=== PATIENT | female | born 1985 | race Caucasian/White ===

== ENCOUNTER 2021-01-11 15:57 | Emergency (ER) | payer OTHER, SELFPAY ==
[2021-01-11] VITALS (18 sets, daily range): BP systolic 111–170; BP diastolic 51–95; PULSE 74–114; RESP 11–19; TEMP 36.4; O2SAT 97–100; BMI 64.9
--- NOTE | 2021-01-11 16:13 | ECG_ITS ---
[facility] Test Date: 2021-01-11 Pat Name: Daxa Fuentes Department: Room: Gender: Female Service Associate: : 1985 Requested By: Chris Erickson Order Number: [id number] Selene MD: Lb Loo M.D. Measurements Intervals [place] Rate: 99 P: 65 IA: 127 QRS: 22 QRSD: 86 T: 32 QT: 353 QTc: 453 Interpretive Statements SINUS RHYTHM WITH SINUS ARRHYTHMIA POSSIBLE LEFT ATRIAL ENLARGEMENT [-0.1mV P-WAVE IN V1/V2] No previous ECG available for comparison Electronically Signed On 01-11-2021 18:07:53 CDT by Lb Loo M.D. [email or web address]
--- NOTE | 2021-01-11 16:23 | W.ED.ABDPA2 ---
Documented by User: Nicole Pitts PA-C 01/11/21 16:49 HPI - Abdominal Pain General: Chief Complaint: Abdominal Pain Stated Complaint: Abdominal pain, nausea, irregular heatrate Time Seen by Provider: 01/11/21 16:19 Source: patient Mode of arrival: ambulatory Limitations: no limitations History of Present Illness: HPI narrative: 35-year-old female presents to the ER today for sudden onset of abdominal pain, diarrhea and abnormal heart rate and feelings. Patient reports she started a new medication for weight loss yesterday called Osito. Patient was warned by her PCP that this could cause some nausea but when she started feeling like her heart was beating fast and pounding she became concerned. Patient reports she has had diarrhea today in addition to some epigastric abdominal pain. Patient denies chest pain but rather describes a feeling of her heart racing and pounding. Patient denies any shortness of breath. Patient denies headache, fever, chills, shortness of breath, dizziness, vomiting, change in urinary habits. MD elicited complaint: abdominal pain Pertinent past history: other (started new medication) Onset (ago): hour(s) (24) Pain Consistency: intermittent Location: Epigastric Severity: mild Associated Symptoms: Reports diarrhea, nausea and other (heart pounding and racing); Denies chills, constipation, fever(s) and vomiting Review of Systems Const: Denies: fever(s), chills or fatigue Eyes: Denies: change in vision ENMT: Denies: throat pain, nasal discharge or nasal congestion Card: Reports: palpitations and irregular heart rhythm (feels like heart is pounding); Denies: chest pain Resp: Denies: dyspnea or wheezing GI: Reports: abdominal pain, nausea, diarrhea and other (heart pounding and racing); Denies: vomiting or constipation Musc: Denies: back pain Skin/Breast: Denies: rash Neuro: Denies: headache(s) or dizziness PFSH ED PFSH: Social History Smoking and tobacco status: never smoked Alcohol intake: never Female Reproductive History: Spontaneous abortions: No Physical Exam Const: COMMON NORMALS: no acute distress and patient oriented x3 GENERAL APPEARANCE: cooperative and comfortable NUTRITIONAL APPEARANCE: obese morbidly obese HENMT: COMMON NORMALS: normocephalic HEAD & SCALP: normocephalic Lymph: LYMPHATIC: no lymphadenopathy noted Chest: COMMONS NORMALS: normal inspection of the chest Resp: COMMON NORMALS: normal respiratory effort, No retractions and clear to auscultation bilaterally AUSCULTATION: clear to auscultation bilaterally, no rales, no rhonchi and no wheezes Cardio: COMMON NORMALS: regular rate, regular rhythm and No murmurs present (Cardio) RATE: regular rate RHYTHM: regular rhythm GI: COMMON NORMALS: Normal to inspection, nondistended, normoactive bowel sounds present, Soft to palpation and non-tender PALPATION: Yes Soft to palpation Extremity: COMMON NORMALS: normal to inspection and full ROM Neuro: COMMON NORMALS: patient oriented x3 and moves all extremities Psych: COMMON NORMALS: mental status grossly normal and Normal thought process present THOUGHT PROCESS: Normal thought process present Skin: COMMON NORMALS: no rashes or lesions noted GENERAL SKIN EXAM: no rashes or lesions noted Course ED course: Patient presents to ER today for epigastric pain and nausea in addition to heart palpitations, feeling of heart racing, feeling of heart pounding. This all started after starting new medication Contrave yesterday for weight loss. These are all frequent known side effects of Contrave. We we will do an EKG and lab work to make sure patient is stable. Vital Signs: Vital signs: Vital Signs Temperature 97.5 F L 01/11/21 16:07 Pulse Rate 92 01/11/21 16:10 Respiratory Rate 14 01/11/21 16:10 Blood Pressure 115/65 01/11/21 16:10 Pulse Oximetry 99 01/11/21 16:10 MDM - Abdominal Pain Lab Data: Attestation: I reviewed the patient's lab results. Lab results narrative: CBC is normal at this time Labs: Lab Results 01/11/21 01/11/21 01/11/21 Range/Units 16:37 16:37 16:37 WBC 8.6 (4.0-10.0) 10^3/ uL RBC 4.58 (4.1-5.3) 10^6/u L Hgb 13.7 (11.5-15.3) g/dL Hct 42.0 (37.0-47.0) % MCV 91.7 (81-99) fl MCH 29.9 (28.0-34.0) pg MCHC 32.6 (30.0-36.0) g/dL RDW 12.8 (12.1-15.1) % Plt Count 324 (130-400) 10^3/c mm MPV 10.2 (7.4-10.4) fL Neut % (Auto) 50.1 % Lymph % (Auto) 40.2 % [place] % (Auto) 6.3 % Eos % (Auto) 2.6 % Baso % (Auto) 0.7 % Neut # (Auto) 4.30 (1.8-7.7) 10^3/u L Lymph # (Auto) 3.5 (0.8-4.8) 10^3/u L [place] # (Auto) 0.5 (0.2-0.9) 10^3/u L Eos # (Auto) 0.2 (0.0-0.8) 10^3/u L Baso # (Auto) 0.1 (0.0-0.1) 10^3/u L Nucleated RBC % (a uto) 0 % Nucleated RBCs # 0.0 /100WBC Sodium 137 (136-145) mmol/L Potassium 4.1 (3.5-5.1) mmol/L Chloride 102 (98-107) mmol/L Carbon Dioxide 22 (22-29) mmol/L Anion Gap 17.1 (5-19) BUN 15 (6-20) mg/dL Creatinine 0.6 (0.5-0.9) mg/dL GFR Calculation 115.1 (90-130) mL/min Glucose 96 (65-115) mg/dL Calculated Osmolal ity 285 (285-295) mOsm/k g Calcium 9.3 (8.5-10.5) mg/dL Total Bilirubin 1.6 H (0.15-1.2) mg/dL AST 27 (0-32) U/L ALT 30 (0-33) U/L Alkaline Phosphata se 62 (35-105) IU/L Total Protein 7.4 (6.6-8.7) g/dL Albumin 4.2 (3.5-5.2) g/dL Globulin 3.2 (1.3-4.6) g/dL Lipase 17 (13-60) U/L Urine Color Yellow (Yellow) Urine Appearance Sl hazy (CLEAR) Urine pH 6.5 (5-7) Ur Specific Gravit y 1.010 (1.005-1.030) Urine Protein Neg (Negative) Urine Glucose (UA) Norm (Normal) Urine Ketones Negative (Negative) Urine Blood 3+ H (Negative) Urine Nitrate Negative (Negative) Urine Bilirubin Neg (Negative) Urine Urobilinogen 1 H (Negative) mg/dL Ur Leukocyte Qing ase Negative (Negative) Urine RBC >100 H (0-2) /hpf Urine WBC 0-4 H (0-5) /hpf Ur Squamous Epith Cells 15-25 H (0-5) /hpf Amorphous Sediment Not Reportable Urine Bacteria Trace (NONE) /hpf Critical Care Time Critical Care Time: Critical Care Time: No Discharge Plan Discharge Patient Disposition: Home Clinical Impression: Adverse reaction to drug Qualifiers: Encounter type: initial encounter Qualified Code(s): T50.905A - Adverse effect of unspecified drugs, medicaments and biological substances, initial encounter Condition: Stable Prescriptions: No Action levothyroxine 25 mcg capsule 25 mcg PO DAILY RF: 0 Discharge Orders: Discharge ED (Routine); Ordered 01/11/21 Ordered By: Mariama Coburn Referrals: Roslyn Muir [Primary Care Provider] - Patient Instructions: Adverse Drug Reaction (ED) Activity Restrictions/Additional Instructions: As we discussed discontinue your new medication and please follow-up with primary care for further options regarding weight loss management. Return to the emergency department for worsening abdominal pain, repetitive episodes of vomiting or diarrhea, fevers, or any other concerns you may have. I hope you begin to feel better soon. Sign Out Sign Out Data: Patient Sign Out occurred on 01/11/21 at 16:59. Patient's care was discussed, and care was transferred from to HARJINDER Tavarez. Coding Level of Care Code ED Specialty Finishing Utility Person for Chg Fwd Exam Comprehensive Documented by User: HARJINDER Tavarez 01/11/21 17:32 HPI - Abdominal Pain General: Chief Complaint: Abdominal Pain Stated Complaint: Abdominal pain, nausea, irregular heatrate Time Seen by Provider: 01/11/21 16:19 PFSH ED PFSH: Social History Smoking and tobacco status: never smoked Alcohol intake: never Course Vital Signs: Vital signs: Vital Signs Temperature 97.5 F L 01/11/21 16:07 Pulse Rate 92 01/11/21 16:10 Respiratory Rate 14 01/11/21 16:10 Blood Pressure 115/65 01/11/21 16:10 Pulse Oximetry 99 01/11/21 16:10 MDM - Abdominal Pain MDM Narrative: Medical decision making narrative: Patient is a nice 35-year-old female here for complaints of abdominal discomfort, nausea, vomiting, diarrhea, and some palpitations after starting a new medication, Contrave for weight loss. Patient states she took her first dose yesterday and her second dose this morning and shortly after began having symptoms. Care was received from Nicole Pitts PA-C. Patient's EKG is normal. Upon re-examination patient is in no acute distress. She is no longer complaining of abdominal discomfort. She has not had any episodes of emesis or diarrhea while here. Vital signs are stable. Labs are non-concerning. UA does have hematuria but patient states she recently started her menstrual cycle. There is no concerns for infection. All of her symptoms are listed under the adverse reactions for Contrave. Recommend she discontinue this medication and follow-up with PCP for further options regarding weight loss management. Strict return to ED precautions given. Lab Data: Labs: Lab Results 01/11/21 01/11/21 01/11/21 Range/Units 16:37 16:37 16:37 WBC 8.6 (4.0-10.0) 10^3/ uL RBC 4.58 (4.1-5.3) 10^6/u L Hgb 13.7 (11.5-15.3) g/dL Hct 42.0 (37.0-47.0) % MCV 91.7 (81-99) fl MCH 29.9 (28.0-34.0) pg MCHC 32.6 (30.0-36.0) g/dL RDW 12.8 (12.1-15.1) % Plt Count 324 (130-400) 10^3/c mm MPV 10.2 (7.4-10.4) fL Neut % (Auto) 50.1 % Lymph % (Auto) 40.2 % [place] % (Auto) 6.3 % Eos % (Auto) 2.6 % Baso % (Auto) 0.7 % Neut # (Auto) 4.30 (1.8-7.7) 10^3/u L Lymph # (Auto) 3.5 (0.8-4.8) 10^3/u L [place] # (Auto) 0.5 (0.2-0.9) 10^3/u L Eos # (Auto) 0.2 (0.0-0.8) 10^3/u L Baso # (Auto) 0.1 (0.0-0.1) 10^3/u L Nucleated RBC % (a uto) 0 % Nucleated RBCs # 0.0 /100WBC Sodium 137 (136-145) mmol/L Potassium 4.1 (3.5-5.1) mmol/L Chloride 102 (98-107) mmol/L Carbon Dioxide 22 (22-29) mmol/L Anion Gap 17.1 (5-19) BUN 15 (6-20) mg/dL Creatinine 0.6 (0.5-0.9) mg/dL GFR Calculation 115.1 (90-130) mL/min Glucose 96 (65-115) mg/dL Calculated Osmolal ity 285 (285-295) mOsm/k g Calcium 9.3 (8.5-10.5) mg/dL Total Bilirubin 1.6 H (0.15-1.2) mg/dL AST 27 (0-32) U/L ALT 30 (0-33) U/L Alkaline Phosphata se 62 (35-105) IU/L Total Protein 7.4 (6.6-8.7) g/dL Albumin 4.2 (3.5-5.2) g/dL Globulin 3.2 (1.3-4.6) g/dL Lipase 17 (13-60) U/L Urine Color Yellow (Yellow) Urine Appearance Sl hazy (CLEAR) Urine pH 6.5 (5-7) Ur Specific Gravit y 1.010 (1.005-1.030) Urine Protein Neg (Negative) Urine Glucose (UA) Norm (Normal) Urine Ketones Negative (Negative) Urine Blood 3+ H (Negative) Urine Nitrate Negative (Negative) Urine Bilirubin Neg (Negative) Urine Urobilinogen 1 H (Negative) mg/dL Ur Leukocyte [place] Negative (Negative) Urine RBC >100 H (0-2) /hpf Urine WBC 0-4 H (0-5) /hpf Ur Squamous Epith Cells 15-25 H (0-5) /hpf Amorphous Sediment Not Reportable Urine Bacteria Trace (NONE) /hpf Discharge Plan Discharge Patient Disposition: Home Clinical Impression: Adverse reaction to drug Qualifiers: Encounter type: initial encounter Qualified Code(s): T50.905A - Adverse effect of unspecified drugs, medicaments and biological substances, initial encounter Condition: Stable Prescriptions: No Action levothyroxine 25 mcg capsule 25 mcg PO DAILY RF: 0 Discharge Orders: Discharge ED (Routine); Ordered 01/11/21 Ordered By: Mariama Coburn Referrals: Roslyn Muir [Primary Care Provider] - Patient Instructions: Adverse Drug Reaction (ED) Activity Restrictions/Additional Instructions: As we discussed discontinue your new medication and please follow-up with primary care for further options regarding weight loss management. Return to the emergency department for worsening abdominal pain, repetitive episodes of vomiting or diarrhea, fevers, or any other concerns you may have. I hope you begin to feel better soon. Sign Out Sign Out Data: Patient Sign Out occurred on 01/11/21 at 16:59. Patient's care was discussed, and care was transferred from to HARJINDER Tavarez. Coding Level of Care Code ED Specialty Finishing Utility Person for Daisy Fwd Exam Comprehensive
[2021-01-11 16:47] LABS: Basophils # 0.1 10^3/uL (0.0-0.1); Basophils % 0.7 %; Eosinophils # 0.2 10^3/uL (0.0-0.8); Eosinophils % 2.6 %; Hemoglobin 13.7 g/dL (11.5-15.3); Lymphocytes # 3.5 10^3/uL (0.8-4.8); Lymphocytes % 40.2 %; Mean Corpuscular HGB Conc 32.6 g/dL (30.0-36.0); Mean Corpuscular Hemoglobin 29.9 pg (28.0-34.0); Mean Corpuscular Volume 91.7 fl (81-99); Mean Platelet Volume 10.2 fL (7.4-10.4); Monocytes # 0.5 10^3/uL (0.2-0.9); Monocytes % 6.3 %; Neutrophils % 50.1 %; Nucleated Red Blood Cells % 0 %; Platelet Count 324 10^3/cmm (130-400); Red Blood Count 4.58 10^6/uL (4.1-5.3); Red Cell Distribution Width 12.8 % (12.1-15.1); White Blood Count 8.6 10^3/uL (4.0-10.0)
[2021-01-11 16:58] LABS: Add Urine Microscopic? YES; Bilirubin Urine Neg (Negative); Blood Urine 3+ (Negative); Glucose Urine UA Norm (Normal); Ketones Urine Negative (Negative); Leukocyte Esterase Urine Negative (Negative); Nitrate Urine Negative (Negative); Protein Urine Neg (Negative); Urine Appearance SL Hazy (CLEAR); Urine Color Yellow (Yellow); Urobilinogen Urine 1 mg/dL (Negative); pH Urine 6.5 (5-7)
[2021-01-11 16:59] LABS: Add Urine Culture? No; Bacteria Urine TRACE /hpf; RBC Urine >100 /hpf (0-2); Squamous Epithelial Cell Urine 15-25 /hpf (0-5); WBC Urine 0-4 /hpf (0-5)
[2021-01-11 17:20] LABS: Alanine Aminotransferase 30 U/L (0-33); Albumin Level 4.2 g/dL (3.5-5.2); Alkaline Phosphatase 62 IU/L (35-105); Blood Urea Nitrogen 15 mg/dL (6-20); Calcium 9.3 mg/dL (8.5-10.5); Carbon Dioxide 22 mmol/L (22-29); Chloride 102 mmol/L (98-107); Globulin 3.2 g/dL (1.3-4.6); Glomerular Filtration Rate 115.1 mL/min (90-130); Glucose 96 mg/dL (65-115); Lipase 17 U/L (13-60); Osmolality Calculated 285 mOsm/kg (285-295); Sodium 137 mmol/L (136-145); Total Bilirubin 1.6 mg/dL (0.15-1.2); Total Protein 7.4 g/dL (6.6-8.7)
[2021-01-11 17:27] LABS: Anion Gap 17.1 (5-19); Aspartate Amino Transferase 27 U/L (0-32); Potassium 4.1 mmol/L (3.5-5.1)
== END 2021-01-11 17:48 | disposition home or self-care (01) ==
PROVIDERS: Physician Assistant; Emergency Provider Physician Assistant; PCP Nurse Practitioner Family
DX: T88.7XXA Unspecified adverse effect of drug or medicament, initial encounter (principal); T50.995A Adverse effect of other drugs, medicaments and biological substances, initial encounter
CPT/HCPCS: 80053; 81001; 83690; 85025; 93005; 99283

== ENCOUNTER → 2023-10-01 10:20 | Outpatient (BNVA) | payer OTHER, SELFPAY | PROVIDERS: Visit Provider Nurse Practitioner | DX: R30.0 Dysuria (principal) | CPT/HCPCS: 81000; 87086 ==